=== PATIENT | female | born 2005 | race Caucasian/White ===

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

== ENCOUNTER 2023-12-06 23:49 | Emergency (ER) | payer OTHER ==
[2023-12-06 23:54] VITALS: BP 139/89; PULSE 78; RESP 18; TEMP 98.6; BMI 34.0
[2023-12-07] MEDS ORDERED: MAG HYDROX/AL HYDROX/SIMETH 30 ML UNIT-DOSE CUP ONE (00:53)
[2023-12-07] MEDS ORDERED: FAMOTIDINE 20 MG/50 ML IVPB 20 MG/50 ML MG IVPB ONE (00:53)
[2023-12-07] MEDS ORDERED: PANTOPRAZOLE SODIUM 40 MG VIAL ONE (00:53)
[2023-12-07 00:59] LABS: BASO % 0.2 % (0-2.0); EOS % 3.8 % (0-4.5); HEMATOCRIT 39.6 % (32.4-45.2); HEMOGLOBIN 13.6 GM/dL (10.7-15.3); LYMPH % 18.4 % (8-40); MCH 29.5 pg (25.7-33.7); MCHC 34.4 g/dl (32.0-36.0); MEAN CELL VOLUME 85.7 fl (80-96); MEAN PLT VOLUME 6.9 fl (7.5-11.1); MONO % 5.1 % (3.8-10.2); NEUT % 72.5 % (42.8-82.8); PLATELET COUNT 393 10^3/uL (134-434); RBC 4.62 M/mm3 (3.60-5.2); RDW 12.8 % (11.6-15.6); WHITE BLOOD COUNT 11.4 K/mm3 (4.0-10.0)
[2023-12-07] MEDS: LACTATED RINGERS SOLUTION 1000 ML INFUS.BAG IV ONE (01:00)
[2023-12-07] MEDS: PANTOPRAZOLE SODIUM 40 MG VIAL IVPUSH ONE (01:00)
[2023-12-07] MEDS: FAMOTIDINE 20 MG/50 ML IVPB 20 MG/50 ML MG IVPB ONE (01:00)
[2023-12-07] MEDS: MAG HYDROX/AL HYDROX/SIMETH -MYLANTA- ORAL SUSPENSION PO ONE (01:00)
[2023-12-07 01:43] LABS: ALBUMIN 3.7 g/dl (3.4-5.0); BILIRUBIN,TOTAL 0.4 mg/dL (0.2-1); BLOOD UREA NITROGEN 10.9 mg/dL (7-18); CALCIUM 9.1 mg/dL (8.5-10.1); CREATININE 0.7 mg/dL (0.55-1.3); POTASSIUM 3.8 mmol/L (3.5-5.1); TOT PROT 7.1 g/dl (6.4-8.2)
[2023-12-07] MEDS ORDERED: SUCRALFATE 1 GM TABLET (FP) ONE (01:58)
[2023-12-07] MEDS: SUCRALFATE 1 GM/10 ML UNIT DOSE CUPS PO ONE (02:01)
[2023-12-07 02:11] LABS: URINE APPEARANCE CLEAR; URINE BILIRUBIN NEGATIVE (NEGATIVE); URINE COLOR YELLOW; URINE GLUCOSE (UA) NEGATIVE (NEGATIVE); URINE KETONE NEGATIVE (NEGATIVE); URINE LEUK ESTERASE NEGATIVE (NEGATIVE); URINE NITRITE NEGATIVE (NEGATIVE); URINE PROTEIN NEGATIVE (NEGATIVE); URINE UROBILINOGEN 0.2 mg/dL (0.2-1.0)
== END 2023-12-07 03:01 | disposition home or self-care (01) ==
LOC: JER 23:49
PROC: 3E033GC Introduction of Other Therapeutic Substance into Peripheral Vein, Percutaneous Approach (ICD-10-PCS; principal; 2023-12-07)
PROC: 3E033GC Introduction of Other Therapeutic Substance into Peripheral Vein, Percutaneous Approach (ICD-10-PCS; 2023-12-07)
DX: R10.13 Epigastric pain (principal); R10.30 Lower abdominal pain, unspecified; R05.9 Cough, unspecified
CPT/HCPCS: 36415; 71046-TC-FY; 80053; 81003; 83690; 84703; 85025; 87086; 93005; 93010; 99285-25

== ENCOUNTER 2023-12-21 23:29 | Emergency (ER) | payer OTHER ==
[2023-12-21 23:38] VITALS: RESP 18; TEMP 97.5; BMI 27.4
[2023-12-22] MEDS ORDERED: ONDANSETRON 4 MG/2 ML VIAL ONE (00:26)
[2023-12-22] MEDS ORDERED: LIDOCAINE VISCOUS 2% ORAL/TOP 15 ML UNIT-DOSE CUP ONE (00:26)
[2023-12-22] MEDS ORDERED: MAG HYDROX/AL HYDROX/SIMETH 30 ML UNIT-DOSE CUP ONE (00:26)
[2023-12-22] MEDS ORDERED: PANTOPRAZOLE SODIUM 40 MG VIAL ONE (00:27)
[2023-12-22 00:28] LABS: BASO % 0.3 % (0-2.0); EOS % 5.9 % (0-4.5); HEMATOCRIT 42.4 % (32.4-45.2); HEMOGLOBIN 14.6 GM/dL (10.7-15.3); LYMPH % 17.7 % (8-40); MCH 29.5 pg (25.7-33.7); MCHC 34.5 g/dl (32.0-36.0); MEAN CELL VOLUME 85.4 fl (80-96); MEAN PLT VOLUME 7.5 fl (7.5-11.1); MONO % 8.3 % (3.8-10.2); NEUT % 67.8 % (42.8-82.8); PLATELET COUNT 275 10^3/uL (134-434); RBC 4.96 M/mm3 (3.60-5.2); RDW 13.6 % (11.6-15.6); WHITE BLOOD COUNT 7.4 K/mm3 (4.0-10.0)
[2023-12-22] MEDS: MAG HYDROX/AL HYDROX/SIMETH 30 ML UNIT-DOSE CUP PO ONE (00:36)
[2023-12-22] MEDS: PANTOPRAZOLE SODIUM 40 MG VIAL IVPUSH ONE (00:36)
[2023-12-22] MEDS: LIDOCAINE VISCOUS 2% ORAL/TOP 15 ML UNIT-DOSE CUP MM ONE (00:36)
[2023-12-22] MEDS: ONDANSETRON 4 MG/2 ML VIAL IVPUSH ONE (00:36)
[2023-12-22] MEDS: LACTATED RINGERS SOLUTION 1,000 ML/1,000 ML INFUS.BAG IV SCH (00:37)
[2023-12-22] MEDS: FAMOTIDINE 20 MG/50 ML IVPB 20 MG/50 ML MG IVPB ONE (00:40)
[2023-12-22 00:41] LABS: INR 1.05 (0.83-1.09); PROTHROMBIN TIME (PATIENT) 11.9 SEC (9.7-13.0)
[2023-12-22 00:44] LABS: ACTIVATED PTT 39.2 SECONDS (25.2-36.5)
[2023-12-22 00:56] LABS: POTASSIUM 3.8 mmol/L (3.5-5.1)
[2023-12-22 00:59] LABS: ALBUMIN 3.8 g/dl (3.4-5.0); BLOOD UREA NITROGEN 9.8 mg/dL (7-18); CALCIUM 8.9 mg/dL (8.5-10.1); MAGNESIUM 2.2 mg/dL (1.8-2.4)
[2023-12-22 01:02] LABS: CREATININE 0.7 mg/dL (0.55-1.3)
[2023-12-22 01:03] LABS: BILIRUBIN,TOTAL 0.3 mg/dL (0.2-1); TOT PROT 7.2 g/dl (6.4-8.2)
[2023-12-22 01:35] LABS: PH,URINE 6.5 (5.0-8.0); URINE APPEARANCE Clear; URINE BILIRUBIN Negative (NEGATIVE); URINE COLOR Yellow; URINE GLUCOSE (UA) Negative (NEGATIVE); URINE KETONE Negative (NEGATIVE); URINE LEUK ESTERASE Trace (NEGATIVE); URINE NITRITE Negative (NEGATIVE); URINE PROTEIN Negative (NEGATIVE); URINE UROBILINOGEN 0.2 mg/dL (0.2-1.0)
[2023-12-22] MEDS ORDERED: MORPHINE SULFATE 2 MG/ML SYRINGE ONE (01:38)
[2023-12-22 01:42] LABS: HCG,QUALITATIVE URINE Negative
[2023-12-22] MEDS: morphine CARPU-JECT 4 MG/1 ML DISP.SYRIN IVPUSH ONE (01:42)
[2023-12-22 01:59] LABS: HYALINE CASTS 0.14 /uL (0-3.1); URINE BACTERIA 205.1 /uL (0-1359); URINE WBC 43.8 /uL (0-25.8)
[2023-12-22 04:30] VITALS: BP 104/58; PULSE 79
== END 2023-12-22 05:08 | disposition home or self-care (01) ==
LOC: JER 23:29
PROC: 3E033NZ Introduction of Analgesics, Hypnotics, Sedatives into Peripheral Vein, Percutaneous Approach (ICD-10-PCS; principal; 2023-12-22)
PROC: 3E033GC Introduction of Other Therapeutic Substance into Peripheral Vein, Percutaneous Approach (ICD-10-PCS; 2023-12-22)
PROC: 3E033GC Introduction of Other Therapeutic Substance into Peripheral Vein, Percutaneous Approach (ICD-10-PCS; 2023-12-22)
DX: U07.1 COVID-19 (principal); R10.13 Epigastric pain; R11.2 Nausea with vomiting, unspecified; R19.7 Diarrhea, unspecified
CPT/HCPCS: 0241U-QW; 36415; 71046-TC-FY; 74177-TC; 80053; 81003; 83690; 83735; 84703; 85025; 85610; 85730; 86850; 86900; 86901; 99285-25; Q9967

== ENCOUNTER 2024-04-23 14:54 | Emergency (ER) | payer OTHER ==
[2024-04-23 15:28] VITALS: BP 120/80; PULSE 89; RESP 19; TEMP 98.4; BMI 34.0
== END 2024-04-23 17:01 | disposition home or self-care (01) ==
LOC: JERFT 14:54
DX: S93.402A Sprain of unspecified ligament of left ankle, initial encounter (principal); X58.XXXA Exposure to other specified factors, initial encounter
CPT/HCPCS: 73610-TC-LT-FY; 99283-25